=== PATIENT | female | born 1980 | race Caucasian/White ===

== ENCOUNTER 2017-03-31 08:11 | Outpatient (CLI) | payer MEDICAID, OTHER ==
[2017-03-31 11:56] LABS: BASOPHILS % (AUTO) 0.8 %; EOSINOPHILS # (AUTO) 0.1 10^3/uL (0.0-0.7); EOSINOPHILS % (AUTO) 1.4 %; HGB - HEMOGLOBIN 14.1 g/dL (12.0-16.0); LYMPHOCYTES # (AUTO) 1.5 10^3/uL (1.5-3.5); LYMPHOCYTES % (AUTO) 33.8 %; MEAN CORPUSCULAR HEMOGLOBIN 31.5 pg (27.0-31.0); MEAN CORPUSCULAR HGB CONC 34.5 g/dL (32.0-36.0); MEAN CORPUSCULAR VOLUME 91.3 fL (81.0-99.0); MEAN PLATELET VOLUME 8.3 fL (7.9-10.8); MONOCYTES # (AUTO) 0.3 10^3/uL (0.0-1.0); MONOCYTES % (AUTO) 7.2 %; NEUTROPHILS # (AUTO) 2.4 10^3/uL (1.5-6.6); NEUTROPHILS % (AUTO) 56.8 %; NUCLEATED RED BLOOD CELLS AUTO 0.1 /100WBC; RED BLOOD COUNT 4.49 10^6/uL (4.20-5.40); RED CELL DISTRIBUTION WIDTH 12.5 % (12.0-15.0); UNCORRECTED WHITE BLOOD COUNT 4.3 x10^3/uL; WHITE BLOOD COUNT 4.3 x10^3/uL (4.8-10.8)
[2017-03-31 12:23] LABS: ALBUMIN/GLOBULIN RATIO 1.4 (1.0-2.2); BILIRUBIN,TOTAL 0.6 mg/dL (0.2-1.0); BUN - BLOOD UREA NITROGEN 16 mg/dL (6-20); CARBON DIOXIDE - CO2 26 mmol/L (21-32); CHLORIDE 106 mmol/L (101-111); CHOLESTEROL 189 mg/dL; CREATININE 0.7 mg/dL (0.4-1.0); GFR - MDRD 94 (>89); GLUCOSE 98 mg/dL (70-100); HDL CHOLESTEROL 38 mg/dL; LDL/HDL RATIO 2.9 (<4.4); POTASSIUM 4.2 mmol/L (3.5-5.0); SODIUM 137 mmol/L (135-145); TOTAL PROTEIN 7.3 g/dL (6.7-8.2); TRIGLYCERIDES 197 mg/dL; VLDL CHOLESTEROL 39 mg/dL
== END 2017-03-31 08:12 | disposition home or self-care (01) ==
LOC: LAB.F 08:11
PROVIDERS: ATTEND Nurse Practitioner Family
DX: I10 Essential (primary) hypertension (principal); E78.5 Hyperlipidemia, unspecified; E03.9 Hypothyroidism, unspecified
CPT/HCPCS: 36415; 80053; 80061; 84443; 85025

== ENCOUNTER 2017-06-14 10:23 | Outpatient (CLI) | payer OTHER ==
[2017-06-14 17:43] LABS: THYROID STIMULATING HORMONE 0.19 uIU/mL (0.34-5.60)
[2017-06-14 18:21] LABS: FREE T4 (FREE THYROXINE) 1.18 ng/dL (0.58-1.64)
== END 2017-06-14 10:24 | disposition home or self-care (01) ==
LOC: LAB.F 10:23
PROVIDERS: ATTEND Nurse Practitioner Family
DX: E03.9 Hypothyroidism, unspecified (principal)
CPT/HCPCS: 36415; 84439; 84443

== ENCOUNTER 2018-05-22 12:11 | Emergency (ER) | payer OTHER ==
[2018-05-22 13:04] LABS: BILIRUBIN,URINE NEGATIVE (NEGATIVE); GLUCOSE, URINE (UA) NEGATIVE (NEGATIVE); KETONES,URINE (UA) NEGATIVE (NEGATIVE); LEUKOCYTE ESTERASE, URINE NEGATIVE (NEGATIVE); NITRITE,URINE NEGATIVE (NEGATIVE); OCCULT BLOOD,URINE NEGATIVE (NEGATIVE); PROTEIN,URINE NEGATIVE (NEGATIVE); UROBILINOGEN,URINE 0.2 (NORMAL) E.U./dL (NORMAL)
[2018-05-22 13:10] LABS: CLARITY,URINE CLEAR (CLEAR)
[2018-05-22 13:32] LABS: BASOPHILS % (AUTO) 0.8 %; EOSINOPHILS # (AUTO) 0.1 10^3/uL (0.0-0.7); EOSINOPHILS % (AUTO) 1.2 %; HGB - HEMOGLOBIN 14.3 g/dL (12.0-16.0); LYMPHOCYTES # (AUTO) 2.3 10^3/uL (1.5-3.5); MEAN CORPUSCULAR HEMOGLOBIN 31.6 pg (27.0-31.0); MEAN CORPUSCULAR HGB CONC 34.6 g/dL (32.0-36.0); MEAN CORPUSCULAR VOLUME 91.4 fL (81.0-99.0); MEAN PLATELET VOLUME 7.4 fL (7.9-10.8); MONOCYTES # (AUTO) 0.5 10^3/uL (0.0-1.0); NEUTROPHILS # (AUTO) 3.5 10^3/uL (1.5-6.6); PLT - PLATELET COUNT 249 10^3/uL (130-450); RED BLOOD COUNT 4.53 10^6/uL (4.20-5.40); RED CELL DISTRIBUTION WIDTH 12.6 % (12.0-15.0); WHITE BLOOD COUNT 6.4 x10^3/uL (4.8-10.8)
[2018-05-22 13:44] LABS: ALBUMIN 4.2 g/dL (3.2-5.5); ALBUMIN/GLOBULIN RATIO 1.2 (1.0-2.2); BILIRUBIN,TOTAL 0.5 mg/dL (0.2-1.0); CALCIUM 9.8 mg/dL (8.5-10.3); CREATININE 0.8 mg/dL (0.4-1.0); TOTAL PROTEIN 7.6 g/dL (6.7-8.2)
[2018-05-22] MEDS ORDERED: IBUPROFEN 800 MG TABLET PO STA (14:57)
--- NOTE | 2018-05-22 15:00 | ED Physician Documentation ---
PD HPI ABD PAIN - Stated complaint Stated Complaint: LOWER RT BACK/HIP PX - Chief complaint Chief Complaint: Abd Pain - History obtained from History obtained from: Patient, Friend - History of Present Illness Timing - onset: How many days ago (2) Timing - duration: Days (2) Timing - details: Gradual onset Pain level max: 10 Pain level now: 6 Quality: Aching, Pain Location: Other (R low back and pelvis) Radiation: Other (R lower abd) Improved by: No: Eating, Laying still, Vomiting, BM, Position, Meds Worsened by: No: Eating, Moving, Breathing, Position, Palpation Associated symptoms: No: Fever, Nausea, Vomiting, Hematemesis, Diarrhea, Constipation, Melena, Hematochezia, Dysuria, Hematuria, Chest pain, Dizzy Similar symptoms before: Has not had sx before Recently seen: Not recently seen Review of Systems Ten Systems: 10 systems reviewed and negative Constitutional: denies: Fever, Chills Nose: denies: Rhinorrhea / runny nose, Congestion Respiratory: denies: Cough GI: denies: Abdominal Pain, Nausea, Vomiting, Diarrhea : reports: Hysterectomy. 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 : None HEENT: None Psych: None Musculoskeletal: None Derm: None - Past Surgical History Past Surgical History: Yes Ortho: Carpal Tunnel surgery, Other /POWER SHOVEL ENGINEER: section, Hysterectomy - Present Medications Home Medications: Ambulatory Orders Medication Instructions Recorded Confirmed Levothyroxine [Synthroid] 150 mcg PO DAILY 06/02/15 06/02/15 Cetirizine [ZyrTEC] 05/22/18 Ibuprofen [Motrin] 400 mg PO Q8H PRN 05/22/18 Meloxicam [Mobic] 15 mg PO DAILY PRN #20 tablet 05/22/18 - Allergies Allergies/Adverse Reactions: Allergies Allergy/AdvReac Type Severity Reaction Status Date / Time rosuvastatin calcium * Allergy Rash Verified 05/22/18 12:34 [From Crestor] - Social History Does the pt smoke?: No Smoking Status: Never smoker Does the pt drink ETOH?: Yes ETOH Use: Wine, Beer, Liquor Does the pt have substance abuse?: No - Immunizations Immunizations are current?: Yes - POLST Patient has POLST: No PD ED PE NORMAL - Vitals Vital signs reviewed: Yes - General General: Alert and oriented X 3, No acute distress - HEENT HEENT: Moist mucous membranes - Neck Neck: Supple, no meningeal sign - Cardiac Cardiac: RRR - Respiratory Respiratory: No respiratory distress, Clear bilaterally - Abdomen Abdomen: Soft, Non tender, Non distended - Back Back: No CVA TTP, No spinal TTP - Derm Derm: Warm and dry, No rash - Extremities Extremities: No edema, No calf tenderness / cord, Other (Normal bilateral lower extremity patellar and ankle jerk reflexes. Normal great toe extension bilaterally. no saddle anesthesia) - Neuro Neuro: Alert and oriented X 3, mold presser 2-12 intact, No motor deficit, No sensory deficit Results - Vitals Vitals: Vital Signs - 24 hr 05/22/18 05/22/18 12:29 17:03 Temperature 36.0 C L Heart Rate 73 51 L Respiratory 16 16 Rate Blood Pressure 142/102 H 120/68 O2 Saturation 98 98 Oxygen O2 Source Room air - Labs Labs: Laboratory Tests 05/22/18 05/22/18 05/22/18 12:36 12:44 13:24 WBC 6.4 RBC 4.53 Hgb 14.3 Hct 41.4 MCV 91.4 MCH 31.6 H MCHC 34.6 RDW 12.6 Plt Count 249 MPV 7.4 L Neut # (Auto) 3.5 Lymph # (Auto) 2.3 [place] # (Auto) 0.5 Eos # (Auto) 0.1 Baso # (Auto) 0.0 Absolute Nucleated RBC 0.00 Nucleated RBC % 0.0 Sodium 135 Potassium 4.0 Chloride 102 Carbon Dioxide 25 Anion Gap 8.0 BUN 14 Creatinine 0.8 Estimated GFR (MDRD) 80 L Glucose 93 Calcium 9.8 Total Bilirubin 0.5 AST 20 ALT 38 Alkaline Phosphatase 46 Total Protein 7.6 Albumin 4.2 Globulin 3.4 Albumin/Globulin Ratio 1.2 Lipase 35 Urine Color YELLOW Urine Clarity CLEAR Urine pH 6.0 Ur Specific [place] 1.010 Urine Protein NEGATIVE Urine Glucose (UA) NEGATIVE Urine Ketones NEGATIVE Urine Occult Blood NEGATIVE Urine Nitrite NEGATIVE Urine Bilirubin NEGATIVE Urine Urobilinogen 0.2 (NORMAL) Ur Leukocyte Esterase NEGATIVE Ur Microscopic Review NOT INDICATED Urine Culture Comments NOT INDICATED - Rads (name of study) pelvis US Radiology: Prelim report reviewed, EMP read contemporaneously, See rad report (unable to visualize ovaries.) PD MEDICAL DECISION MAKING - ED course Complexity details: reviewed results, re-evaluated patient, considered differential (No cauda equina, no spinal epidural abscess, no fracture, no aortic dissection or evidence of aneursym rupture), d/w patient ED course: 38-year-old female with right lower back pain. Unclear etiology? Possible sciatica? No acute findings on ultrasound. She declines anything stronger for pain here than Motrin. She would like to go home at this time and will return if she worsens. Patient counseled regarding signs and symptoms for which I believe and urgent re-evaluation would be necessary. Patient with good understanding of and agreement to plan and is comfortable going home at this time This document was made in part using voice recognition software. While efforts are made to proofread this document, sound alike and grammatical errors may occur. Departure - Departure Disposition: 01 Home, Self Care Clinical Impression: Pain Condition: Good Instructions: ED Abdominal Pain Unkn Cause Follow-Up: Ena Lay ARNP [Primary Care Provider] - Within 1 week Prescriptions: Meloxicam [Mobic] 15 mg PO DAILY PRN #20 tablet PRN Reason: pain Comments: The cause of your pain is unclear today. Follow-up with your doctor for further evaluation and care. Return if you worsen. Discharge Date/Time: 05/22/18 17:08
--- NOTE | 2018-05-22 16:24 | Ultrasound Report ---
Reason: pelvic pain, R Procedure Date: 05/22/2018 Accession Number: [id number] / [id number] Procedure: US - Pelvic w/Transvag+Doppler Comp CPT Code: FULL RESULT: EXAM: PELVIC ULTRASOUND EXAM DATE: 05/22/2018 03:44 PM. CLINICAL HISTORY: Pelvic pain, R. COMPARISON: None. TECHNIQUE: Realtime transabdominal pelvic scan performed to identify the uterus and adnexa and as an overview of other pelvic structures, followed by transvaginal scan to provide greater detail of the uterus and adnexa, with static image documentation. FINDINGS: Uterus: Surgically absent. Right Ovary: Not identified. Left Ovary: Not identified. Free Fluid: None. Other: None. IMPRESSION: 1. Prior hysterectomy. 2. Neither ovary was identified. Consider abdominal pelvic CT if clinically warranted. RADIA
[2018-05-22 17:04] VITALS: BP 120/68
== END 2018-05-22 17:08 | disposition home or self-care (01) ==
LOC: ED 12:11
DX: M54.5 Low back pain (principal); R10.2 Pelvic and perineal pain; R10.30 Lower abdominal pain, unspecified
CPT/HCPCS: 36415; 76830; 76856; 80053; 81003; 83690; 85025; 93975; 99283; A9270; 81001; 87086

== ENCOUNTER 2018-09-05 08:27 | Outpatient (CLI) | payer OTHER ==
[2018-09-05 10:21] LABS: BASOPHILS % (AUTO) 0.8 %; HGB - HEMOGLOBIN 14.2 g/dL (12.0-16.0); LYMPHOCYTES # (AUTO) 1.4 10^3/uL (1.5-3.5); LYMPHOCYTES % (AUTO) 31.4 %; MEAN CORPUSCULAR HEMOGLOBIN 31.2 pg (27.0-31.0); MEAN CORPUSCULAR HGB CONC 34.2 g/dL (32.0-36.0); MEAN CORPUSCULAR VOLUME 91.1 fL (81.0-99.0); MEAN PLATELET VOLUME 7.7 fL (7.9-10.8); MONOCYTES # (AUTO) 0.3 10^3/uL (0.0-1.0); MONOCYTES % (AUTO) 7.5 %; NEUTROPHILS # (AUTO) 2.7 10^3/uL (1.5-6.6); NEUTROPHILS % (AUTO) 59.3 %; PLT - PLATELET COUNT 244 10^3/uL (130-450); RED BLOOD COUNT 4.57 10^6/uL (4.20-5.40); RED CELL DISTRIBUTION WIDTH 12.7 % (12.0-15.0); WHITE BLOOD COUNT 4.5 x10^3/uL (4.8-10.8)
[2018-09-05 10:37] LABS: ALBUMIN/GLOBULIN RATIO 1.4 (1.0-2.2); ALKALINE PHOSPHATASE 41 IU/L (42-121); ALT ALANINE AMINOTRANSFERASE 17 IU/L (10-60); AST ASPARTATE AMINOTRANSFERASE 19 IU/L (10-42); BILIRUBIN,TOTAL 0.9 mg/dL (0.2-1.0); BUN - BLOOD UREA NITROGEN 15 mg/dL (6-20); CALCIUM 9.1 mg/dL (8.5-10.3); CARBON DIOXIDE - CO2 26 mmol/L (21-32); CHLORIDE 101 mmol/L (101-111); CHOL/HDL RATIO 4.5 (<4.4); CHOLESTEROL 236 mg/dL; CREATININE 0.7 mg/dL (0.4-1.0); GFR - MDRD 94 (>89); GLUCOSE 99 mg/dL (70-100); HDL CHOLESTEROL 53 mg/dL; LDL CHOLESTEROL,CALCULATED 156 mg/dL; LDL/HDL RATIO 2.9 (<4.4); SODIUM 139 mmol/L (135-145); TOTAL PROTEIN 6.8 g/dL (6.7-8.2); VLDL CHOLESTEROL 27 mg/dL
== END 2018-09-05 08:28 | disposition home or self-care (01) ==
LOC: LAB.F 08:27
PROVIDERS: ATTEND Nurse Practitioner Family
DX: I10 Essential (primary) hypertension (principal); E78.5 Hyperlipidemia, unspecified; E03.9 Hypothyroidism, unspecified
CPT/HCPCS: 36415; 80053; 80061; 83721; 84443; 85025

== ENCOUNTER 2019-12-27 08:02 | Emergency (ER) | payer OTHER ==
--- NOTE | 2019-12-27 08:44 | ED Physician Documentation ---
PD HPI ABD PAIN - Stated complaint Stated Complaint: ABD PAIN - Chief complaint Chief Complaint: Abd Pain - History obtained from History obtained from: Patient - History of Present Illness Timing - onset: Last night Timing - duration: Hours (12) Timing - details: Abrupt onset, Still present Quality: Aching, Sharp, Pain Location: RLQ Radiation: No: Right flank Improved by: No: Eating, Vomiting (s) Worsened by: Position (knees up), Palpation. No: Eating, Breathing Associated symptoms: Nausea. No: Fever, Vomiting, Diarrhea, Constipation, Dysuria, Hematuria, Vaginal dc Similar symptoms before: Has not had sx before Review of Systems Constitutional: denies: Fever, Chills Nose: denies: Rhinorrhea / runny nose, Congestion Throat: denies: Sore throat Respiratory: denies: Cough GI: reports: Abdominal Pain, Nausea. 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 ) - Present Medications Home Medications: Ambulatory Orders Medication Instructions Recorded Confirmed Levothyroxine [Synthroid] 150 mcg PO DAILY 06/02/15 06/02/15 Cetirizine [ZyrTEC] 05/22/18 Ibuprofen [Motrin] 400 mg PO Q8H PRN 05/22/18 Meloxicam [Mobic] 15 mg PO DAILY PRN #20 tablet 05/22/18 - Allergies Allergies/Adverse Reactions: Allergies Allergy/AdvReac Type Severity Reaction Status Date / Time rosuvastatin calcium * Allergy Rash Verified 12/27/19 08:26 [From Crestor] - Social History Does the pt smoke?: No Smoking Status: Never smoker Does the pt drink ETOH?: Yes Does the pt have substance abuse?: No - Immunizations Immunizations are current?: Yes - POLST Patient has POLST: No PD ED PE NORMAL - Vitals Vital signs reviewed: Yes - General General: Alert and oriented X 3, No acute distress, Well developed/nourished - Neck Neck: Supple, no meningeal sign, No adenopathy - Cardiac Cardiac: RRR, No murmur - Respiratory Respiratory: Clear bilaterally - Abdomen Abdomen: Soft, Non tender, No organomegaly - Female Female : Deferred - Rectal Rectal: Deferred - Back Back: No CVA TTP - Derm Derm: Normal color, Warm and dry - Neuro Neuro: Alert and oriented X 3, No motor deficit, Normal speech Results - Vitals Vitals: Vital Signs - 24 hr 12/27/19 12/27/19 12/27/19 08:10 09:21 10:56 Temperature 36.6 C 36.7 C Heart Rate 79 52 L 59 L Respiratory 16 16 18 Rate Blood Pressure 142/98 H 129/84 H O2 Saturation 99 100 100 12/27/19 12/27/19 12:50 13:21 Temperature 36.9 C Heart Rate 66 65 Respiratory 18 16 Rate Blood Pressure 129/88 H 125/80 O2 Saturation 100 100 Oxygen O2 Source Room air - Labs Labs: Laboratory Tests 12/27/19 12/27/19 12/27/19 08:47 09:15 11:12 WBC 5.3 RBC 4.62 Hgb 14.6 Hct 43.6 MCV 94.4 MCH 31.6 H MCHC 33.5 RDW 12.0 Plt Count 232 MPV 10.8 Neut # (Auto) 3.1 Lymph # (Auto) 1.6 [place] # (Auto) 0.4 Eos # (Auto) 0.1 Baso # (Auto) 0.0 Absolute Nucleated RBC 0.00 Nucleated RBC % 0.0 Sodium 136 Potassium 3.9 Chloride 104 Carbon Dioxide 27 Anion Gap 5.0 L BUN 15 Creatinine 0.8 Estimated GFR (MDRD) 80 L Glucose 96 Calcium 8.3 L Total Bilirubin 0.6 AST 12 ALT 15 Alkaline Phosphatase 33 L Total Protein 6.3 L Albumin 3.9 Globulin 2.4 Albumin/Globulin Ratio 1.6 Lipase 41 Urine Color YELLOW Urine Clarity CLEAR Urine pH 6.0 Ur Specific [place] 1.020 Urine Protein NEGATIVE Urine Glucose (UA) NEGATIVE Urine Ketones NEGATIVE Urine Occult Blood NEGATIVE Urine Nitrite NEGATIVE Urine Bilirubin NEGATIVE Urine Urobilinogen 0.2 (NORMAL) Ur Leukocyte Esterase NEGATIVE Ur Microscopic Review NOT INDICATED Urine Culture Comments NOT INDICATED - Rads (name of study) pelvic U/S Radiology: Prelim report reviewed (uterus absent; normal ovaries and flow. Appendix not visualized. ), See rad report abd/pelvic CT Radiology: Prelim report reviewed (no stones, noral appendix, no diverticulitis; source of pain is not found. ), See rad report PD MEDICAL DECISION MAKING - ED course Complexity details: re-evaluated patient (still with considerable pain but she does not want narcotic medications. ), considered differential (consider ovarian pain, given abruptness of it. Or kidney stone, internal bleeding. less likely is appendicitis. ), d/w patient Departure - Departure Disposition: 01 Home, Self Care Clinical Impression: Right lower quadrant abdominal pain Condition: Stable Record reviewed to determine appropriate education?: Yes Instructions: ED Abdominal Pain Unkn Cause Follow-Up: SUAD LOWE MD [Primary Care Provider] - Comments: Stay well-hydrated. No obvious answer to the cause of your pain on ultrasound CT scan or lab urine tests. So we can say no appendicitis, ovarian cyst, internal bleeding, kidney stones, ovarian torsion or other acute process. Unfortunately it does not tell us the cause of the pain. It is possible there may have been some inflammation of adhesions or other nonsurgical cause. At this point I would suggest some anti-inflammatories such as ibuprofen 3 4 times a day. To that add Tylenol if needed. Recheck a return if not improved over the next day or 2 or if other symptoms develop along with this. Discharge Date/Time: 12/27/19 13:22
[2019-12-27] MEDS ORDERED: SODIUM CHLORIDE 0.9% 1,000 ML IV STA (08:59)
[2019-12-27] MEDS ORDERED: KETOROLAC 30 MG/ML VIAL IVP STA (09:00)
[2019-12-27 09:17] LABS: BILIRUBIN,URINE NEGATIVE (NEGATIVE); GLUCOSE, URINE (UA) NEGATIVE (NEGATIVE); KETONES,URINE (UA) NEGATIVE (NEGATIVE); LEUKOCYTE ESTERASE, URINE NEGATIVE (NEGATIVE); NITRITE,URINE NEGATIVE (NEGATIVE); OCCULT BLOOD,URINE NEGATIVE (NEGATIVE); PROTEIN,URINE NEGATIVE (NEGATIVE); UROBILINOGEN,URINE 0.2 (NORMAL) E.U./dL (NORMAL)
[2019-12-27 09:19] LABS: CLARITY,URINE CLEAR (CLEAR)
[2019-12-27 09:30] LABS: BASOPHILS % (AUTO) 0.8 %; EOSINOPHILS # (AUTO) 0.1 10^3/uL (0.0-0.7); EOSINOPHILS % (AUTO) 1.1 %; HGB - HEMOGLOBIN 14.6 g/dL (12.0-16.0); LYMPHOCYTES # (AUTO) 1.6 10^3/uL (1.5-3.5); LYMPHOCYTES % (AUTO) 30.5 %; MEAN CORPUSCULAR HEMOGLOBIN 31.6 pg (27.0-31.0); MEAN CORPUSCULAR HGB CONC 33.5 g/dL (32.0-36.0); MEAN CORPUSCULAR VOLUME 94.4 fL (81.0-99.0); MEAN PLATELET VOLUME 10.8 fL (7.9-10.8); MONOCYTES # (AUTO) 0.4 10^3/uL (0.0-1.0); MONOCYTES % (AUTO) 8.3 %; NEUTROPHILS # (AUTO) 3.1 10^3/uL (1.5-6.6); NEUTROPHILS % (AUTO) 58.9 %; PLT - PLATELET COUNT 232 10^3/uL (130-450); RED BLOOD COUNT 4.62 10^6/uL (4.20-5.40); WHITE BLOOD COUNT 5.3 x10^3/uL (4.8-10.8)
--- NOTE | 2019-12-27 10:43 | Ultrasound Report ---
PROCEDURE: Abdomen Limited INDICATIONS: abrupt RLQ pain last night. s/p hyst TECHNIQUE: Real-time focused scanning was performed of the abdomen, with image documentation. COMPARISON: Pelvic ultrasound same day. FINDINGS: Assessment for appendicitis was performed. The appendix was not visualized as a normal or abnormal structure. No complex free fluid within the peritoneal space is seen nor is simple free flui d. No adenopathy is found. IMPRESSION: Body habitus is significant in reducing quality of visualization. No sonographic evidence of acute ap pendicitis. Please note that a normal or abnormal appendix was not found and for this reason follow-u p by CT scanning may become necessary. Reviewed by: Evgeny Perez MD on 12/27/2019 10:41 AM PDT Approved by: Evgeny Perez MD on 12/27/2019 10:41 AM PDT Station ID: [id number]
--- NOTE | 2019-12-27 11:02 | Ultrasound Report ---
PROCEDURE: Pelvic w/Transvag+Doppler Comp INDICATIONS: pelvic pain, R; s/p hyst, has ovaries TECHNIQUE: Real-time scanning was performed of the pelvic organs, with image documentation. Additional endovagi nal scanning was necessary due to incomplete visualization of the adnexal and endometrial structures by transabdominal scanning. COMPARISON: None. FINDINGS: Transabdominal scanning: Limited scanning through the kidneys shows no hydronephrosis. No pathologi c free abdominal or pelvic fluid. Endovaginal scanning: Uterus: Subtotal hysterectomy. Anechoic fluid within the cervix. Ovaries: Right ovary measures 3.4 x 1.7 x 2.4 cm. Left ovary measures 3.3 x 1.7 x 2.0 cm. Ovary seen transabdominally only. There is intraovarian flow bilaterally by duplex. IMPRESSION: 1. Remote partial hysterectomy. 2. Otherwise unremarkable study. Reviewed by: Nils Green MD on 12/27/2019 11:01 AM PDT Approved by: Nils Green MD on 12/27/2019 11:01 AM PDT Station ID: [id number]
[2019-12-27 11:30] LABS: ALBUMIN 3.9 g/dL (3.2-5.5); ALBUMIN/GLOBULIN RATIO 1.6 (1.0-2.2); BILIRUBIN,TOTAL 0.6 mg/dL (0.2-1.0); CALCIUM 8.3 mg/dL (8.5-10.3); CREATININE 0.8 mg/dL (0.4-1.0); TOTAL PROTEIN 6.3 g/dL (6.7-8.2)
--- NOTE | 2019-12-27 12:19 | CT Report ---
PROCEDURE: Abdomen/Pelvis W INDICATIONS: RLQ abrupt pain last evening CONTRAST: IV CONTRAST: Optiray 320 ml: 100 PO CONTRAST: *NO PO CONTRAST TECHNIQUE: After the administration of contrast, 5 mm thick sections acquired from the diaphragms to the sym physis. 5 mm thick coronal and sagittal reformats were acquired. For radiation dose reduction, the following was used: automated exposure control, adjustment of mA and/or kV according to patient size . COMPARISON: 12/27/19 US of Abdomen, CT 06/16/15 of A/P. FINDINGS: Image quality: Excellent. ABDOMEN: Lung bases: Lung bases are clear. Heart size is normal. Solid organs: Liver and spleen are normal in size and enhancement. Gallbladder Biliary system is non dilated. Pancreas enhances normally. No adrenal nodules. Kidneys demonstrate normal size an d enhancement, without hydronephrosis. Peritoneum and bowel: Bowel loops demonstrate normal wall thickness and caliber. No free fluid or a ir. Nodes and vessels: No retroperitoneal or mesenteric adenopathy by size criteria. Aorta and inferior vena cava are normal in size. Miscellaneous: No ventral hernias. PELVIS: Genitourinary: Bladder wall thickness is normal. Miscellaneous: No inguinal hernias or adenopathy. Normal appendix found. Bones: No suspicious bony lesions. No vertebral body compression fractures. IMPRESSION: Normal appendix found, no diverticulitis, source of pain is not seen. Reviewed by: Evgeny Perez MD on 12/27/2019 12:18 PM PDT Approved by: Evgeny Perez MD on 12/27/2019 12:18 PM PDT Station ID: [id number]
[2019-12-27 13:22] VITALS: BP 125/80
[2019-12-27] MEDS ORDERED: IOVERSOL 320 100 ML VIAL IVP ONE (17:16)
== END 2019-12-27 13:22 | disposition home or self-care (01) ==
LOC: ED 08:02
DX: R10.31 Right lower quadrant pain (principal); R11.0 Nausea; Z90.710 Acquired absence of both cervix and uterus
CPT/HCPCS: 36415; 74177; 76705; 76830; 76856; 80053; 81001; 81003; 83690; 85025; 87086; 93975; 96361; 96374; 99284

== ENCOUNTER 2020-05-22 15:34 | Outpatient (CLI) | payer OTHER ==
[2020-05-22 20:20] LABS: ALBUMIN/GLOBULIN RATIO 1.2 (1.0-2.2); ALKALINE PHOSPHATASE 40 IU/L (42-121); ALT ALANINE AMINOTRANSFERASE 20 IU/L (10-60); AST ASPARTATE AMINOTRANSFERASE 18 IU/L (10-42); BILIRUBIN,TOTAL 0.5 mg/dL (0.2-1.0); BUN - BLOOD UREA NITROGEN 12 mg/dL (6-20); CALCIUM 9.3 mg/dL (8.5-10.3); CARBON DIOXIDE - CO2 26 mmol/L (21-32); CHLORIDE 102 mmol/L (101-111); CHOL/HDL RATIO 3.7 (<4.4); CHOLESTEROL 209 mg/dL; CREATININE 0.7 mg/dL (0.4-1.0); GLUCOSE 88 mg/dL (70-100); HDL CHOLESTEROL 56 mg/dL; LDL CHOLESTEROL,CALCULATED 114 mg/dL; TOTAL PROTEIN 7.4 g/dL (6.7-8.2); VLDL CHOLESTEROL 39 mg/dL
== END 2020-05-22 15:35 | disposition home or self-care (01) ==
LOC: LAB.S 15:34
PROVIDERS: ATTEND Family Medicine
DX: Z00.00 Encounter for general adult medical examination without abnormal findings (principal); E03.9 Hypothyroidism, unspecified; I10 Essential (primary) hypertension
CPT/HCPCS: 36415; 80053; 80061; 83721; 84443

== ENCOUNTER 2020-08-18 13:22 | Outpatient (CLI) | payer OTHER | END 2020-08-18 13:23 | disposition home or self-care (01) | LOC: LAB.S 13:22 | PROVIDERS: ATTEND Family Medicine | DX: E03.9 Hypothyroidism, unspecified (principal) | CPT/HCPCS: 36415; 84443 ==

== ENCOUNTER 2023-05-16 08:00 | Outpatient (CLI) | payer OTHER ==
[2023-05-16 23:08] LABS: BACTERIAL VAGINOSIS DNA NEGATIVE (NEGATIVE); CANDIDA GLABRATA DNA NEGATIVE (NEGATIVE); CANDIDA GROUP DNA NEGATIVE (NEGATIVE); CANDIDA KRUSEI DNA NEGATIVE (NEGATIVE); TRICHOMONAS VAGINALIS DNA NEGATIVE (NEGATIVE)
== END 2023-05-16 23:59 | disposition home or self-care (01) ==
LOC: LAB.WCP 08:00
PROVIDERS: ATTEND Nurse Practitioner
DX: R14.0 Abdominal distension (gaseous) (principal)
CPT/HCPCS: 81514